=== PATIENT | female | born 1960 | race Caucasian/White ===

== ENCOUNTER 2017-10-24 11:39 | Emergency (ER) | payer OTHER ==
[2017-10-24] MEDS ORDERED: ACETAMINOPHEN EXTRA STRENGTH 500 MG TABLET ONE (12:21)
[2017-10-24] MEDS ORDERED: DIAZEPAM 5 MG TABLET ONE (12:22)
== END 2017-10-24 14:06 | disposition home or self-care (01) ==
LOC: EDH 11:39
DX: S76.111A Strain of right quadriceps muscle, fascia and tendon, initial encounter (principal); M54.16 Radiculopathy, lumbar region; X58.XXXA Exposure to other specified factors, initial encounter; Y93.89 Activity, other specified; Y92.89 Other specified places as the place of occurrence of the external cause; Y99.8 Other external cause status; Z88.2 Allergy status to sulfonamides; Z88.6 Allergy status to analgesic agent